=== PATIENT | male | born 1945 | race Caucasian/White ===

== ENCOUNTER 2020-10-22 12:57 | Inpatient (IN) | payer MEDICARE ==
[~2020-10-22] VITALS: Ht 175.3 cm; Wt 73.9 kg
[~2020-10-22 12:57] MED LIST: ACETAMINOPHEN500 MG PEG; AMIODARONE HCL200 MG PEG; AMOX TR-K CLV1 EAC4 PO; ANORO ELLIPTA1 EACH INH; AUGMENTIN 875-1 EACH PO; CEFUROXIME500 MG PO; COLACE 100MG C100 MG PO; COLACE SOL100 MG/10 PO; DITROPAN 5 MG TA5 MG PO; DOK PLUS TABLE1 EACH PO; ELAVIL 50 MG TA50 MG PO; ELIQUIS 5 MG TAB5 MG PEG; ELIQUIS2.5 MG PO; FLOMAX 0.4 MG0.4 MG PEG; FLONASE 0.05% N16 GM; HABITROL 14 MG P1 EA TD; IBUPROFEN400 MG PO; IPRAT-ALBUT 0.5-3 ML INH; IPRAT-ALBUT 0.5-3 ML NEB; K-DUR TAB 20 M20 MEQ PO; LASIX40 MG PEG; LISINOPRIL20 MG PO; LOPRESSOR 25 MG25 MG PO; LOPRESSOR 50 MG50 MG PEG; LOVENOX SY40 MG/0.4 SQ; LYRICA75 MG PO; MAGNESIUM400 MG PO; MEDROL DOSEPAK 24 MG PO; MEDROL4 MG PO; MEGACE TAB 40 M40 MG PO; MULTI-DAY VITA1 EACH PO; NAPROSYN500 MG PO; NEURONTIN 100100 MG PO; NEURONTIN 300300 MG PO; NICOTINE PATCH1 EAC1 TD; NORCO 5-325 TA1 EACH PO; OMEPRAZOLE20 MG PEG; POLYETHYLENE GL17 GM PEG; POLYETHYLENE GL17 GM PO; POTASSIUM40 MEQ/15 PEG; PROVENTIL HFA 61 INH INH; ROBAXIN 750 MG750 MG PO; SPIRIVA RESPIMAT4 GM INH; SYMBICORT 160-1 INHA INH; THIAMINE HCL100 MG PO; TRAMADOL HCL50 MG PO; ULTRAM50 MG PO; VENTOLIN HFA 66.7 GM INH; VENTOLIN HFA 90 MCG; VITAMIN B12 PO
[2020-10-24] MEDS ORDERED: MAPAP325 MG PEG (00:14)
[2020-10-24] MEDS ORDERED: [UNRECOGNIZED DRUG - OTHER] PO (00:24)
[2020-10-24] MEDS ORDERED: PHENERGAN 25 MG25 M1 PO (00:25)
[2020-10-24] MEDS ORDERED: ZOFRAN 4 MG TAB4 MG PO (00:25)
[2020-10-24] MEDS ORDERED: MIRALAX17 GM PO (00:26)
[2020-10-24] MEDS ORDERED: IPRAT-ALBUT 0.5-3 ML INH (00:28)
[2020-10-24] MEDS ORDERED: TRAMADOL HCL50 MG PO (00:29)
[2020-10-24] MEDS ORDERED: BUDESONIDE0.25 MG/2 INH (00:32)
[2020-10-24] MEDS ORDERED: SENNA PLUS 8.61 EACH PO (00:33)
[2020-10-24] MEDS ORDERED: MAG-OX 400 TAB400 MG GT (00:34)
[2020-10-24] MEDS ORDERED: STOOL SOFT50 MG/5 ML PO (00:36)
[2020-10-24] MEDS ORDERED: AMIODARONE HCL200 MG PO (00:36)
[2020-10-24] MEDS ORDERED: NEURONTIN 100100 MG PO (00:37)
[2020-10-24] MEDS ORDERED: FLOMAX 0.4 MG0.4 MG PO (00:37)
[2020-10-24] MEDS ORDERED: HYDROCODON-ACE1 EAC4 PO (00:40)
[2020-10-24] MEDS ORDERED: MELATONIN5 M2 PO (00:41)
[2020-10-24] MEDS ORDERED: FENTANYL1 EAC1 TD (00:42)
[2020-10-24] MEDS ORDERED: KLONOPIN0.5 MG PO (00:43)
[2020-10-24] MEDS ORDERED: PROTONIX IV40 MG IV (00:43)
[2020-10-24] MEDS ORDERED: HYDROMORPHO IV (00:45)
[2020-10-24 06:50] LABS: HEMOGLOBIN 9.5 gm/dl (14.0-17.5); RED BLOOD COUNT 3.25 M/UL (4.20-5.50); WHITE BLOOD COUNT 11.9 K/UL (4.5-11.0)
[2020-10-24 07:10] LABS: BUN/CREATININE RATIO 30 (0-10)
--- NOTE | 2020-10-24 19:33 | NUR ---
PT CAME TO THE FLOOR WITH NO WAY TO TAKE PO MEDS. ICE STATED THAT THEY HAD TRIED TO PLACE A NG TUBE AND A DOBBHOFF TUBE THREE TO FOUR TIMES DUE TO THE PEG TUBE PLACEMENT WAS IRRITATED. DOCTOR COOPER THEN CAME TO THE FLOOR AND PUT IN A NG TUBE 16 FR AND WE ARE CURRENTLY AWAITING PLACEMENT VERIFICATION. PT THEN HAD TO BE TRACH SUCTIONED AND THE PATIENT TOLERATED IT WELL.
[2020-10-25 15:41] LABS: HEMOGLOBIN 10.1 gm/dl (14.0-17.5); RED BLOOD COUNT 3.46 M/UL (4.20-5.50); WHITE BLOOD COUNT 11.5 K/UL (4.5-11.0)
[2020-10-25 16:08] LABS: BUN/CREATININE RATIO 25 (0-10)
[2020-10-26 04:56] LABS: HEMOGLOBIN 9.2 gm/dl (14.0-17.5); RED BLOOD COUNT 3.15 M/UL (4.20-5.50); WHITE BLOOD COUNT 9.9 K/UL (4.5-11.0)
[2020-10-26 06:04] LABS: BUN/CREATININE RATIO 26 (0-10)
[2020-10-27 05:36] LABS: HEMOGLOBIN 9.5 gm/dl (14.0-17.5); RED BLOOD COUNT 3.27 M/UL (4.20-5.50); WHITE BLOOD COUNT 9.4 K/UL (4.5-11.0)
[2020-10-27 06:01] LABS: BUN/CREATININE RATIO 18 (0-10)
[2020-10-28 04:53] LABS: HEMOGLOBIN 9.8 gm/dl (14.0-17.5); RED BLOOD COUNT 3.39 M/UL (4.20-5.50); WHITE BLOOD COUNT 10.1 K/UL (4.5-11.0)
[2020-10-28 05:02] LABS: BUN/CREATININE RATIO 16 (0-10)
[2020-10-29 05:07] LABS: HEMOGLOBIN 9.9 gm/dl (14.0-17.5); RED BLOOD COUNT 3.41 M/UL (4.20-5.50); WHITE BLOOD COUNT 8.4 K/UL (4.5-11.0)
[2020-10-29 05:40] LABS: BUN/CREATININE RATIO 16 (0-10)
[2020-10-30 06:41] LABS: HEMOGLOBIN 10.3 gm/dl (14.0-17.5); RED BLOOD COUNT 3.56 M/UL (4.20-5.50)
[2020-10-30 07:02] LABS: BUN/CREATININE RATIO 24 (0-10)
[2020-10-31 05:15] LABS: HEMOGLOBIN 9.9 gm/dl (14.0-17.5); RED BLOOD COUNT 3.4 M/UL (4.20-5.50); WHITE BLOOD COUNT 8.6 K/UL (4.5-11.0)
[2020-10-31 05:27] LABS: BUN/CREATININE RATIO 28 (0-10)
[2020-11-01 05:35] LABS: BUN/CREATININE RATIO 26 (0-10)
[2020-11-01] MEDS ORDERED: FENTANYL1 EAC1 TD (16:46)
[2020-11-01] MEDS ORDERED: HYDROCODON-ACE1 EAC4 PO (16:46)
[2020-11-01] MEDS ORDERED: ULTRAM50 MG PO (16:46)
[2020-11-02 04:49] LABS: HEMOGLOBIN 10.7 gm/dl (14.0-17.5); RED BLOOD COUNT 3.72 M/UL (4.20-5.50); WHITE BLOOD COUNT 9.3 K/UL (4.5-11.0)
[2020-11-02 05:14] LABS: BUN/CREATININE RATIO 20 (0-10)
[2020-11-04 05:45] LABS: HEMOGLOBIN 10.3 gm/dl (14.0-17.5); RED BLOOD COUNT 3.59 M/UL (4.20-5.50); WHITE BLOOD COUNT 9.1 K/UL (4.5-11.0)
[2020-11-04 06:22] LABS: BUN/CREATININE RATIO 30 (0-10)
[2020-11-07 04:33] LABS: HEMOGLOBIN 10.4 gm/dl (14.0-17.5); RED BLOOD COUNT 3.65 M/UL (4.20-5.50); WHITE BLOOD COUNT 6.9 K/UL (4.5-11.0)
[2020-11-07 04:52] LABS: BUN/CREATININE RATIO 31 (0-10)
--- NOTE | 2020-11-08 16:48 | NUR ---
11/08/20 1646 BACK TO BED WITH ONE ASSIST
--- NOTE | 2020-11-09 10:52 | NUR ---
11/09/20 1000 OLD DURAGESIC PATCH REMOVED WITHNESSED BY ROSALIO FREY
[2020-11-11 03:10] LABS: HEMOGLOBIN 9.8 gm/dl (14.0-17.5); RED BLOOD COUNT 3.46 M/UL (4.20-5.50); WHITE BLOOD COUNT 6.8 K/UL (4.5-11.0)
[2020-11-11 03:52] LABS: BUN/CREATININE RATIO 34 (0-10)
[2020-11-13 04:55] LABS: HEMOGLOBIN 10.2 gm/dl (14.0-17.5); RED BLOOD COUNT 3.54 M/UL (4.20-5.50); WHITE BLOOD COUNT 6.7 K/UL (4.5-11.0)
[2020-11-13 05:12] LABS: BUN/CREATININE RATIO 34 (0-10)
--- NOTE | 2020-11-13 13:10 | NUR ---
11/13/2020 1300 REPORT CALLED TO SAYDA SÁNCHEZ RN AT [facility] AT [phone]
== END 2020-11-13 14:30 | DRG 393 ==
LOC: CCU 10-23 23:09 → MED SURG 4 10-23 23:09 → PROG CARE 10-23 23:09 → CCU 10-23 23:19 → PROG CARE 10-24 17:30 → MED SURG 4 10-26 02:59
PROVIDERS: Hospitalist; Internal Medicine; Internal Medicine Infectious Disease; Surgery; ADMIT Internal Medicine
PROC: 0DH63UZ Insertion of Feeding Device into Stomach, Percutaneous Approach (ICD-10-PCS; principal; 2020-11-01 10:00)
DX: K94.22 Gastrostomy infection (principal); J96.21 Acute and chronic respiratory failure with hypoxia; L03.311 Cellulitis of abdominal wall; I50.32 Chronic diastolic (congestive) heart failure; K21.9 Gastro-esophageal reflux disease without esophagitis; Z20.822 Contact with and (suspected) exposure to COVID-19; E87.6 Hypokalemia; J44.9 Chronic obstructive pulmonary disease, unspecified; D64.9 Anemia, unspecified; I27.20 Pulmonary hypertension, unspecified; I11.0 Hypertensive heart disease with heart failure; R13.10 Dysphagia, unspecified; L89.321 Pressure ulcer of left buttock, stage 1; L89.311 Pressure ulcer of right buttock, stage 1; L89.156 Pressure-induced deep tissue damage of sacral region; I48.0 Paroxysmal atrial fibrillation; Z87.891 Personal history of nicotine dependence; Z93.0 Tracheostomy status; Z85.46 Personal history of malignant neoplasm of prostate; Z87.81 Personal history of (healed) traumatic fracture; Z79.01 Long term (current) use of anticoagulants; Z79.899 Other long term (current) drug therapy; Z88.1 Allergy status to other antibiotic agents; Z74.01 Bed confinement status; Z82.49 Family history of ischemic heart disease and other diseases of the circulatory system; Z88.2 Allergy status to sulfonamides; Z90.49 Acquired absence of other specified parts of digestive tract
CPT/HCPCS: 36415; 71045; 74230; 80048; 80053; 80202; 83735; 83880; 84100; 84132; 85025; 85027; 86140; 87070; 87077; 87186; 87205; 92507; 92526; 92610; 92611-GN; 93005; 94640; 94664; 94760; 97110; 97110-GP-CQ; 97116; 97116-GP-CQ; 97161; 97166; 97530; 97530-GP-CQ; A6212; C9113; J0295; J1170; J1335; J1650; J1940; J2060; J2270; J2405; J2543; J2704; J3370; J3480; J7030; J7040; J7070; U0002

== ENCOUNTER 2021-11-03 16:48 | Inpatient (IN) | payer MEDICARE ==
[~2021-11-03] VITALS: Ht 175.3 cm; Wt 69.4 kg
[~2021-11-03 16:48] MED LIST changes: +AMIODARONE HCL200 MG PO; -ANORO ELLIPTA1 EACH INH; +BUDESONIDE0.25 MG/2 INH; +FENTANYL1 EAC1 TD; +FLOMAX 0.4 MG0.4 MG PO; +HYDROCODON-ACE1 EAC4 PO; +HYDROMORPHO IV; +KLONOPIN0.5 MG PO; +MAG-OX 400 TAB400 MG GT; +MAPAP325 MG PEG; +MELATONIN5 M2 PO; +MIRALAX17 GM PO; +PHENERGAN 25 MG25 M1 PO; +PROTONIX IV40 MG IV; +SENNA PLUS 8.61 EACH PO; +STOOL SOFT50 MG/5 ML PO; +ZOFRAN 4 MG TAB4 MG PO; +[UNRECOGNIZED DRUG - OTHER] PO
[2021-11-03 17:24] LABS: HEMOGLOBIN 13.3 gm/dl (14.0-17.5); RED BLOOD COUNT 4.5 M/UL (4.20-5.50); WHITE BLOOD COUNT 6.9 K/UL (4.5-11.0)
[2021-11-03 18:01] LABS: BUN/CREATININE RATIO 19 (0-10)
[2021-11-04] MEDS ORDERED: TRAMADOL HCL50 MG PO (00:29)
[2021-11-04 06:33] LABS: HEMOGLOBIN 12.2 gm/dl (14.0-17.5); RED BLOOD COUNT 4.23 M/UL (4.20-5.50)
[2021-11-04 06:35] LABS: WHITE BLOOD COUNT 3.4 K/UL (4.5-11.0)
[2021-11-04 06:55] LABS: BUN/CREATININE RATIO 19 (0-10)
[2021-11-04] MEDS ORDERED: VISTARIL50 MG PO (10:10)
[2021-11-04] MEDS ORDERED: PROAIR DIGIHAL90 MCG INH (10:10)
[2021-11-04] MEDS ORDERED: TRAZODONE HCL50 MG PO (10:11)
[2021-11-04] MEDS ORDERED: AMIODARONE HCL200 MG PO (10:12)
[2021-11-04] MEDS ORDERED: FUROSEMIDE40 MG PO (13:43)
[2021-11-04] MEDS ORDERED: OMEPRAZOLE20 MG PO (13:44)
[2021-11-04] MEDS ORDERED: PEG3350510 GM PO (13:48)
[2021-11-04] MEDS ORDERED: ELIQUIS5 MG PO (14:05)
[2021-11-04] MEDS ORDERED: ANORO ELLIPTA1 EACH INH (21:01)
[2021-11-05 06:18] LABS: HEMOGLOBIN 11.9 gm/dl (14.0-17.5); RED BLOOD COUNT 4.14 M/UL (4.20-5.50)
[2021-11-05 06:23] LABS: WHITE BLOOD COUNT 5.9 K/UL (4.5-11.0)
[2021-11-05 06:39] LABS: BUN/CREATININE RATIO 28 (0-10)
[2021-11-06 06:43] LABS: HEMOGLOBIN 11.7 gm/dl (14.0-17.5); RED BLOOD COUNT 4.02 M/UL (4.20-5.50)
[2021-11-06 07:03] LABS: BUN/CREATININE RATIO 31 (0-10)
[2021-11-07 07:28] LABS: HEMOGLOBIN 12.2 gm/dl (14.0-17.5); RED BLOOD COUNT 4.11 M/UL (4.20-5.50); WHITE BLOOD COUNT 6.8 K/UL (4.5-11.0)
[2021-11-07 07:43] LABS: BUN/CREATININE RATIO 34 (0-10)
[2021-11-08 07:01] LABS: HEMOGLOBIN 13.3 gm/dl (14.0-17.5); WHITE BLOOD COUNT 6.2 K/UL (4.5-11.0)
[2021-11-08 07:08] LABS: RED BLOOD COUNT 4.66 M/UL (4.20-5.50)
[2021-11-08 07:53] LABS: BUN/CREATININE RATIO 36 (0-10)
[2021-11-09 07:07] LABS: HEMOGLOBIN 13.8 gm/dl (14.0-17.5); RED BLOOD COUNT 4.84 M/UL (4.20-5.50); WHITE BLOOD COUNT 6.6 K/UL (4.5-11.0)
[2021-11-09 07:26] LABS: BUN/CREATININE RATIO 31 (0-10)
[2021-11-10 04:24] LABS: HEMOGLOBIN 12.4 gm/dl (14.0-17.5)
[2021-11-10 04:33] LABS: RED BLOOD COUNT 4.25 M/UL (4.20-5.50); WHITE BLOOD COUNT 9.9 K/UL (4.5-11.0)
[2021-11-10 04:41] LABS: BUN/CREATININE RATIO 39 (0-10)
[2021-11-10] MEDS ORDERED: MEDROL4 MG PO (09:29)
[2021-11-10] MEDS ORDERED: LOPRESSOR 50 MG50 MG PO ×2 (09:34→09:38)
[2021-11-10 18:11] LABS: ORGANISM ID Not indicated. (.); SPECIMEN SOURCE Urine (.); STREPTOCOCCUS PNEUMONIAE AG Negative (Negative)
== END 2021-11-10 12:57 | disposition home or self-care (01) | DRG 193 ==
LOC: ER1 16:48 → M/S 20:51 → CDU 20:51 → M/S 20:51
PROVIDERS: Emergency Medicine; Internal Medicine; ADMIT Internal Medicine
PROC: 5A09357 Assistance with Respiratory Ventilation, Less than 24 Consecutive Hours, Continuous Positive Airway Pressure (ICD-10-PCS; principal; 2021-11-03)
PROC: 5A0945A Assistance with Respiratory Ventilation, 24-96 Consecutive Hours, High Flow/Velocity Cannula (ICD-10-PCS; 2021-11-08)
DX: J18.9 Pneumonia, unspecified organism (principal); J96.21 Acute and chronic respiratory failure with hypoxia; J44.1 Chronic obstructive pulmonary disease with (acute) exacerbation; Z20.822 Contact with and (suspected) exposure to COVID-19; I50.32 Chronic diastolic (congestive) heart failure; J44.0 Chronic obstructive pulmonary disease with (acute) lower respiratory infection; G89.4 Chronic pain syndrome; N40.0 Benign prostatic hyperplasia without lower urinary tract symptoms; I27.20 Pulmonary hypertension, unspecified; K21.9 Gastro-esophageal reflux disease without esophagitis; J20.9 Acute bronchitis, unspecified; F17.210 Nicotine dependence, cigarettes, uncomplicated; I48.0 Paroxysmal atrial fibrillation; I11.0 Hypertensive heart disease with heart failure; R53.81 Other malaise; Z99.81 Dependence on supplemental oxygen; Z79.01 Long term (current) use of anticoagulants; Z85.46 Personal history of malignant neoplasm of prostate; Z87.81 Personal history of (healed) traumatic fracture; Z93.1 Gastrostomy status; Z93.0 Tracheostomy status; Z90.49 Acquired absence of other specified parts of digestive tract; Z88.1 Allergy status to other antibiotic agents; Z82.49 Family history of ischemic heart disease and other diseases of the circulatory system; Z88.2 Allergy status to sulfonamides
CPT/HCPCS: 36415; 36600; 71045; 80048; 80053; 81001; 82550; 82553; 82803; 82962; 83036; 83735; 83874; 83880; 84484; 85025; 85027; 86140; 87040; 87086; 87278; 87899; 90686; 93005; 94640; 94660; 94664; 94760; 96374; 96375; 96376; 97116-GP-CQ; 97161; 97166; 99285; C9113; G0378; J0696; J2543; J2920; J2930; Q9967; U0002

== ENCOUNTER 2022-05-20 13:16 | Emergency (ER) | payer MEDICARE ==
[~2022-05-20 13:16] MED LIST changes: +ANORO ELLIPTA1 EACH INH; +ELIQUIS5 MG PO; +ENDOCET 5-3251 EACH PO; +FUROSEMIDE40 MG PO; +LOPRESSOR 50 MG50 MG PO; +OMEPRAZOLE20 MG PO; +PEG3350510 GM PO; +PROAIR DIGIHAL90 MCG INH; +TRAZODONE HCL50 MG PO; +VISTARIL50 MG PO
[2022-05-20 14:54] LABS: HEMOGLOBIN 12.8 gm/dl (14.0-17.5); RED BLOOD COUNT 4.55 M/UL (4.20-5.50); WHITE BLOOD COUNT 11.6 K/UL (4.5-11.0)
[2022-05-20 18:34] LABS: BUN/CREATININE RATIO 41 (0-10)
[2022-05-20] MEDS ORDERED: DOXYCYCLINE HY100 MG PO (22:32)
[2022-05-20] MEDS ORDERED: PREDNISONE 20 M20 MG PO (22:34)
== END 2022-05-20 22:50 | disposition home or self-care (01) ==
LOC: ER1 13:16
PROVIDERS: Physician Assistant
DX: J44.1 Chronic obstructive pulmonary disease with (acute) exacerbation (principal); I10 Essential (primary) hypertension; Z85.46 Personal history of malignant neoplasm of prostate
CPT/HCPCS: 36600; 71045; 80053; 82550; 82553; 82803; 83880; 84484; 85025; 93005; 94640; 94664; 96374; 99285; J1100